=== PATIENT | male | born 1995 | race Caucasian/White ===

== ENCOUNTER 2019-01-03 09:36 | Emergency (ER) | payer BC ==
[2019-01-03 11:50] VITALS: BP 134/66
--- NOTE | 2019-01-03 12:14 | UC ---
Eye Complaint HPI - HPI Summary HPI Summary: WORSENING REDNESS WITH SWELLING L INNER EYE X 2 DAYS. NO FEVER, EYE PAIN OR DISCHARGE. NO CONTACT USE. - History of Current Complaint Chief Complaint: UCEye Stated Complaint: LT EYE CONCERN Time Seen by Provider: 01/03/19 12:07 Hx Obtained From: Patient Onset/Duration: Gradual Onset Timing: Constant Pain Intensity: 3 Aggravating Factor(s): Nothing Alleviating Factor(s): Nothing Associated Signs And Symptoms: Negative: Photophobia, Vision Impairment Bilateral, Fever - Risk Factors Penetrating Injury Risk Factor: Negative Globe Rupture Risk Factors: Negative Acute Glaucoma Risk Factors: Negative Optic Artery Occlusion Risk Factors: Negative - Allergies/Home Medications Allergies/Adverse Reactions: Allergies Allergy/AdvReac Type Severity Reaction Status Date / Time No Known Allergies Allergy Verified 01/03/19 11:48 PMH/Surg Hx/FS Hx/Imm Hx Previously Healthy: Yes - Surgical History Surgical History: None - Family History Known Family History: Positive: Non-Contributory - Social History Alcohol Use: Occasionally Substance Use Type: None Smoking Status (MU): Never Smoked Tobacco - Immunization History Vaccination Up to Date: Yes Review of Systems All Other Systems Reviewed And Are Negative: Yes Constitutional: Negative: Fever Eyes: Positive: Eye Redness - L INNER EYE. Negative: Blurred Vision, Diplopia, Drainage, Photophobia Neurological: Negative: Headache Physical Exam Triage Information Reviewed: Yes Appearance: Well-Appearing Vital Signs: Initial Vital Signs Temp 97.5 F 01/03/19 11:47 Pulse 70 01/03/19 11:47 Resp 15 01/03/19 11:47 BP 134/66 01/03/19 11:47 Pulse Ox 99 01/03/19 11:47 Vital Signs Reviewed: Yes Eyes: Positive: Other: - VISUAL ACUITY NO CORRECTION OD/OU/OS=20/20. NO AURICULAR ADENOPATHY. L UPPER INNER LASH LINE MILD SWELLING AND ERYTHEMA. MILD ERYTHEMA EXTENDS ACROSS HALF OF THE UPPER LID BUT NO SWELLING. CONJUNCTIVA CLEAR. PERRL, EOMI AND PAINLESS. AC'S CLEAR. REST OF PERIORBITAL AREAS ARE UNREMARKABLE. ENT: Positive: Pharynx normal, TMs normal. Negative: Nasal congestion, Nasal drainage Neck: Positive: Supple, Nontender, No Lymphadenopathy Respiratory: Positive: Lungs clear Cardiovascular: Positive: RRR Abdomen Description: Positive: Nontender Musculoskeletal: Positive: ROM Intact Neurological: Positive: Alert Psychological: Positive: Age Appropriate Behavior Skin Exam: Normal Eye Complaint Course/Dx - Differential Dx/Diagnosis Differential Diagnosis/HQI/PQRI: Other - C/W STY AND SCONDARY CELLULITIS(MILD). NO CONCERN FOR ORBITAL CELLULITIS. Provider Diagnosis: Stye, Periorbital cellulitis of left eye Discharge - Sign-Out/Discharge Documenting (check all that apply): Patient Departure All imaging exams completed and their final reports reviewed: No Studies - Discharge Plan Condition: Stable Disposition: HOME Prescriptions: Amoxicillin/Clavulanate TAB* [Augmentin TAB 875*] 875 mg PO BID 10 Days #20 tab Erythromycin OPTH OINT* [Erythromycin 0.5% OPTH OINT*] 1 applic LEFT EYE TID 7 Days #1 ophth.oint Patient Education Materials: Cellulitis (DC), Stye (ED) Referrals: Humza Benavides DO [Primary Care Provider] - 4 Days - Billing Disposition and Condition Condition: STABLE Disposition: Home - Attestation Statements Provider Attestation: I was available for consult. This patient was seen by the DIMITRI. The patient was not presented to, seen by, or examined by me. -Andrew
== END 2019-01-03 12:22 | disposition home or self-care (01) ==
LOC: UCCORT 09:36
DX: H00.026 Hordeolum internum left eye, unspecified eyelid (principal); L03.213 Periorbital cellulitis
CPT/HCPCS: 99202; G0463